=== PATIENT | female | born 1960 ===

== ENCOUNTER 2018-06-20 02:18 | Emergency (ER) | payer MEDICAID ==
[2018-06-20 02:32] VITALS: TEMP 97.4; O2SAT 97
--- NOTE | 2018-06-20 04:16 | ED PDOC ---
HPI: Chest Pain Time Seen by Provider: 06/20/18 03:41 Chief Complaint (Nursing): Chest Pain Chief Complaint (Provider): Chest Pain History Per: Patient History/Exam Limitations: no limitations Onset/Duration Of Symptoms: Days (1) Current Symptoms Are (Timing): Still Present Quality: "Pain" Additional Complaint(s): 58 year old female with PMHx of asthma and diabetes presents to the ED for an evaluation of chest pain onset yesterday. Patient complains of pain with superficial touch over the chest savage. She denies any heart attacks in the pas t. Also reports of cough. Otherwise, she denies fever, abdominal pain or diarrhea. PMD: Daryl Gonzalez Past Medical History Reviewed: Historical Data, Nursing Documentation, Vital Signs Vital Signs: Last Vital Signs Temp 97.4 F L 06/20/18 02:29 Pulse 90 06/20/18 02:29 Resp 16 06/20/18 02:29 BP 120/74 06/20/18 02:29 Pulse Ox 97 06/20/18 02:29 - Medical History PMH: Anxiety, Asthma, Depression, Diabetes, HTN, Hypothyroidism, Schizophrenia Denies: Arthritis, CHF, COPD, Hepatitis, HIV, Hypercholesterolemia, Chronic Kidney Disease, Rheumatoid Arthritis, Seizures, Sexually Transmitted Disease - Family History Family History: States: Unknown Family Hx - Home Medications Home Medications: Ambulatory Orders Medication Instructions Recorded Atorvastatin [Lipitor] 40 mg PO HS #30 tab 10/23/15 Atorvastatin [Lipitor] 40 mg PO HS #30 tab 10/23/15 Benztropine [Cogentin] 1 mg PO HS #30 tab 10/23/15 Glimepiride [amaRYL] 2 mg PO BID #60 tab 10/23/15 Omeprazole [Prilosec] 40 mg PO DAILY #60 capsule. 10/23/15 Paliperidone Palmitate [Invega 156 mg IM ONCE #1 ser 10/23/15 Sustenna] Quetiapine Fumarate [Seroquel] 800 mg PO HS #60 tablet 10/23/15 - Allergies Allergies/Adverse Reactions: Allergies Allergy/AdvReac Type Severity Reaction Status Date / Time No Known Allergies Allergy Verified 06/20/18 02:32 Review of Systems ROS Statement: Except As Marked, All Systems Reviewed And Found Negative Constitutional: Negative for: Fever Cardiovascular: Positive for: Chest Pain Respiratory: Positive for: Cough Gastrointestinal: Negative for: Abdominal Pain, Diarrhea Physical Exam - Reviewed Nursing Documentation Reviewed: Yes Vital Signs Reviewed: Yes - Physical Exam Appears: Positive for: Well, Non-toxic, No Acute Distress Head Exam: Positive for: ATRAUMATIC, NORMAL INSPECTION, NORMOCEPHALIC Skin: Positive for: Normal Color, Warm, Dry. Negative for: Rash Eye Exam: Positive for: EOMI, Normal appearance, PERRL ENT: Positive for: Normal ENT Inspection Neck: Positive for: Normal, Painless ROM Cardiovascular/Chest: Positive for: Regular Rate, Rhythm Respiratory: Positive for: Normal Breath Sounds. Negative for: Decreased Breath Sounds, Respiratory Distress Gastrointestinal/Abdominal: Positive for: Normal Exam, Soft. Negative for: Tenderness Back: Positive for: Normal Inspection Extremity: Positive for: Normal ROM. Negative for: Tenderness, Pedal Edema Neurologic/Psych: Positive for: Alert, Oriented (x3) - Laboratory Results Result Diagrams: 06/20/18 04:00 06/20/18 04:00 - ECG O2 Sat by Pulse Oximetry: 97 (RA) Pulse Ox Interpretation: Normal Medical Decision Making Medical Decision Making: Time: 342 Impression: work up for chest pain Plan: EKG BMP Troponin CBC w/ differential PTT Prothrombin time Chest one view Aspirin 325mg customer consultant Reevaluation 0545 CXR: poor imagining and official read pending. Scribe Attestation: Documented by Lacey Harris, acting as a scribe for Katiuska Chacon MD Provider Scribe Attestation: All medical record entries made by the Scribe were at my direction and personally dictated by me. I have reviewed the chart and agree that the record accurately reflects my personal performance of the history, physical exam, medical decision making, and the department course for this patient. I have also personally directed, reviewed, and agree with the discharge instructions and disposition. Disposition - Clinical Impression Clinical Impression: Atypical chest pain - Disposition Disposition: Routine/Home Disposition Time: 05:47 Condition: IMPROVED Additional Instructions: Follow up with primary medical doctor for further workup of chest pain. Take Tylenol or Ibuprofen for pain at home. Return to the emergency department if sy mptoms worsen or if new symptoms develop. Instructions: Chest Pain (DC), Costochondritis (DC) Forms: [employer] (Japanese), [employer] ([place]) Print Language: AZERI
[2018-06-20 04:50] LABS: BASO % 0.1 % (0.0-2.0); HEMOGLOBIN 12.7 g/dL (12.0-16.0); LYMPH # 1.2 K/uL (1.0-4.3); MEAN CORPUSCULAR HEMOGLOBIN 28.2 pg (27.0-31.0); MEAN CORPUSCULAR HGB CONC 32.8 g/dL (33.0-37.0); MEAN PLATELET VOLUME 10.2 fl (7.2-11.7); MONO # 0.4 K/uL (0.0-0.8); NEUT # 2.3 K/uL (1.8-7.0); NEUT % 57.9 % (50.0-75.0); NRBC % 0.1 % (0.0-0.0); RBC 4.5 Mil/uL (3.80-5.20)
[2018-06-20 04:54] LABS: BLOOD UREA NITROGEN 12 mg/dl (7-17); CALCIUM 9.9 mg/dL (8.4-10.2); GFR NON-AFRICAN AMERICAN > 60
[2018-06-20 06:05] VITALS: BP 122/77; PULSE 95; RESP 18
--- NOTE | 2018-06-20 09:56 | CARD ---
APPROVED REPORT Date of service: 06/20/2018 EKG Measurement Heart [id number] <Conclusion> Normal sinus rhythm Nonspecific T wave abnormality Abnormal ECG
--- NOTE | 2018-06-20 11:08 | RAD ---
Date of service: 06/20/2018 PROCEDURE: CHEST RADIOGRAPH, 1 VIEW HISTORY: CP COMPARISON: Chest radiograph dated 11/28/2016. FINDINGS: LUNGS: Clear. PLEURA: No pneumothorax or pleural fluid seen. CARDIOVASCULAR: Aortic atherosclerotic calcifications. Cardiomediastinal silhouette stably enlarged OSSEOUS STRUCTURES: Unchanged. VISUALIZED UPPER ABDOMEN: Normal. OTHER FINDINGS: None. IMPRESSION: No active disease.
== END 2018-06-20 06:14 | disposition home or self-care (01) ==
LOC: H.ER 02:18
DX: R07.9 Chest pain, unspecified (principal)